=== PATIENT | male | born 1955 | race Native Hawaiian/Other Pacific Islander ===

== ENCOUNTER 2016-04-12 20:14 | Emergency (ER) | payer BC ==
[~2016-04-12] VITALS: Ht 175.3 cm; Wt 99.8 kg
[2016-04-12 23:39] VITALS: BP 152/98; TEMP 97.8
== END 2016-04-12 23:40 | disposition home or self-care (01) ==
LOC: ED 20:14
DX: J44.1 Chronic obstructive pulmonary disease with (acute) exacerbation (principal); F41.9 Anxiety disorder, unspecified
CPT/HCPCS: 36600; 82805; 93005; 96374; 96375; 99283; J2060; J2930

== ENCOUNTER 2018-02-17 09:38 | Outpatient (CLI) | payer OTHER | END 2018-02-17 09:57 | disposition short-term general hospital (02) | LOC: AMB 09:38 | DX: M62.81 Muscle weakness (generalized) (principal) | CPT/HCPCS: A0425; A0427 ==

== ENCOUNTER 2018-02-17 09:58 | Observation (INO) | payer OTHER ==
[~2018-02-17] VITALS: Ht 175.3 cm; Wt 104.5 kg
[2018-02-17 10:04] VITALS: BP 163/100; TEMP 97.5
[2018-02-17 11:28] LABS: PLATELET COUNT 165 K/uL (142-355)
[2018-02-17 11:38] LABS: POTASSIUM 4.6 mmol/L (3.6-5.2)
[2018-02-17 17:45] VITALS: BP 115/81; TEMP 98.4; Ht 175.3 cm; Wt 104.5 kg
[2018-02-17 20:00] VITALS: BP 150/87; TEMP 97.9
[2018-02-18] VITALS (7 sets, daily range): BP systolic 109–139; BP diastolic 51–86; TEMP 97.4–98.7
[2018-02-18 06:54] LABS: PLATELET COUNT 166 K/uL (142-355)
[2018-02-18 07:12] LABS: POTASSIUM 4.5 mmol/L (3.6-5.2)
[2018-02-19] VITALS: BP 143/89; TEMP 98.5
[2018-02-19 03:07] LABS: PLATELET COUNT 114 K/uL (142-355)
[2018-02-19 03:28] LABS: POTASSIUM 3.9 mmol/L (3.6-5.2)
[2018-02-19 04:00] VITALS: BP 155/90; TEMP 98.6
== END 2018-02-19 05:45 ==
LOC: ED 09:58 → MED/SURG 13:50
PROVIDERS: Internal Medicine; ADMIT Allergy & Immunology
DX: R26.89 Other abnormalities of gait and mobility (principal); Z86.73 Personal history of transient ischemic attack (TIA), and cerebral infarction without residual deficits; E78.49 Other hyperlipidemia; E87.1 Hypo-osmolality and hyponatremia; F41.8 Other specified anxiety disorders; E86.0 Dehydration; R53.1 Weakness; M79.89 Other specified soft tissue disorders; R41.0 Disorientation, unspecified
CPT/HCPCS: 36415; 80048; 80053; 80061; 81000; 85027; 85730; 99220; 99284; G0378; J1644; J1885; J2060

== ENCOUNTER 2018-02-19 05:55 | Outpatient (CLI) | payer OTHER | END 2018-02-19 08:20 | disposition short-term general hospital (02) | LOC: AMB 05:55 | DX: R26.89 Other abnormalities of gait and mobility (principal); Z86.73 Personal history of transient ischemic attack (TIA), and cerebral infarction without residual deficits; E78.49 Other hyperlipidemia; E87.1 Hypo-osmolality and hyponatremia; F41.8 Other specified anxiety disorders; E86.0 Dehydration; R53.1 Weakness; M79.89 Other specified soft tissue disorders; R41.0 Disorientation, unspecified | CPT/HCPCS: A0425; A0427 ==